=== PATIENT | female | born 2000 | race Two or more races ===

== ENCOUNTER 2020-12-07 05:16 | Inpatient (IN) | payer MEDICAID ==
[~2020-12-07] VITALS: Ht 167.6 cm; Wt 118.6 kg
[2020-12-07 00:20] VITALS: BP 117/73
[2020-12-07] MEDS ORDERED: PREN1TAB62 PO (05:27)
[2020-12-07] MEDS ORDERED: LACTATED RINGERS 1,000 ML IV SCH (05:30)
[2020-12-07] MEDS ORDERED: SODIUM CITRATE/CITRIC ACID 30 ML UDC PO ONE (05:30)
[2020-12-07] MEDS ORDERED: LACTATED RINGERS 1,000 ML IVBOLUS ONE (05:30)
[2020-12-07] MEDS ORDERED: METOCLOPRAMIDE 5 MG/ML, 2ML IV ONE (05:30)
[2020-12-07 05:34] VITALS: BP 125/75
[2020-12-07] MEDS ORDERED: NEWBORN KIT ONE ×2 (05:34→05:57)
[2020-12-07 05:44] LABS: BASOPHILS % (AUTO) 1 % (0-1); EOSINOPHILS % (AUTO) 1 % (1-7); LYMPHOCYTES % (AUTO) 25 % (22-44); MEAN CORPUSCULAR HEMOGLOBIN 32.1 pg (27.0-34.8); MEAN CORPUSCULAR HGB CONC 34.6 g/dL (32.4-35.8); MEAN PLATELET VOLUME 10.5 fL (7.4-10.4); MONOCYTES % (AUTO) 9 % (2-9); NEUTROPHILS % (AUTO) 65 % (42-75); PLATELET COUNT 139 x10^3/uL (130-400); RED BLOOD COUNT 4.51 x10^6/uL (3.82-5.3); RED CELL DISTRIBUTION WIDTH 14.2 % (9.6-15.2)
[2020-12-07] MEDS ORDERED: OXYTOCIN 30U/ 0.9% NaCL 500ML 500 ML ONE (05:57)
[2020-12-07] MEDS ORDERED: SODIUM CITRATE/CITRIC ACID 15 ML UDC ONE (05:57)
[2020-12-07] MEDS ORDERED: CEFAZOLIN 1,000 MG ONE (07:12)
[2020-12-07] MEDS ORDERED: EPHEDRINE 50 MG/ML, 1ML ONE (07:12)
[2020-12-07] MEDS ORDERED: DEXAMETHASONE 4 MG/ML, 1ML ONE (07:12)
[2020-12-07] MEDS ORDERED: KETOROLAC 30 MG/1 ML ONE (07:12)
[2020-12-07] MEDS ORDERED: ONDANSETRON 2MG/ML, 2ML ONE (07:12)
[2020-12-07] MEDS ORDERED: PHENYLEPHRINE 10 MG/ML ONE (07:12)
[2020-12-07] MEDS ORDERED: OXYTOCIN 10 UNITS/ML, 1ML ONE (07:12)
[2020-12-07] MEDS ORDERED: FENTANYL PF 100 MCG/2ML ONE (07:13)
[2020-12-07] MEDS ORDERED: ALBUTEROL SULFATE 2.5 MG/3 ML NPPB PRN (07:30)
[2020-12-07] MEDS ORDERED: ONDANSETRON 2MG/ML, 2ML IV PRN (07:30)
[2020-12-07] MEDS ORDERED: MIDAZOLAM 1 MG/ML, 2ML IV PRN (07:30)
[2020-12-07] MEDS ORDERED: ACETAMINOPHEN 325 MG TABLET PO PRN ×2 (07:30)
[2020-12-07] MEDS ORDERED: EPHEDRINE 50 MG/ML, 1ML IVPush PRN (07:30)
[2020-12-07] MEDS ORDERED: MISOPROSTOL 200 MCG TABLET PR PRN (07:30)
[2020-12-07] MEDS ORDERED: CALCIUM CARBONATE 500 MG TAB.CHEW PO PRN (07:30)
[2020-12-07] MEDS ORDERED: PROMETHAZINE 25 MG/ML, 1ML IV PRN (07:30)
[2020-12-07] MEDS ORDERED: FENTANYL PF 100 MCG/2ML IV PRN (07:30)
[2020-12-07] MEDS ORDERED: MEPERIDINE/PF 25MG/0.5ML IVPush PRN (07:30)
[2020-12-07] MEDS ORDERED: MEASLES,MUMPS&RUBELLA VACC/PF 0.5 ML SQ-VACC PRN (07:30)
[2020-12-07] MEDS ORDERED: METOPROLOL 1 MG/ML, 5ML IV PRN (07:30)
[2020-12-07] MEDS ORDERED: OXYcodone 5 MG/5 ML ORAL.SOL UDC PO PRN (07:30)
[2020-12-07] MEDS ORDERED: ONDANSETRON 2MG/ML, 2ML IVPush PRN (07:30)
[2020-12-07] MEDS ORDERED: hydrALAzine 20 MG/ML, 1ML IV PRN (07:30)
[2020-12-07] MEDS: LACTATED RINGERS 1,000 ML IV SCH ×5 (07:30→23:30)
[2020-12-07] MEDS ORDERED: RHOGAM FROM BLOOD BANK 1 NOTE EA IM/IV ONE (07:30)
[2020-12-07] MEDS ORDERED: HYDROmorphone 2 MG/ML, 1ML IVPush PRN (07:30)
[2020-12-07] MEDS ORDERED: OXYcodone/APAP 5/325MG TABLET PO PRN ×2 (07:30)
[2020-12-07] MEDS ORDERED: HYDROcodone/APAP 7.5-325MG/15ML UDC PO PRN (07:30)
[2020-12-07] MEDS: KETOROLAC 30 MG/1 ML IV SCH ×3 (07:30→21:33)
[2020-12-07] MEDS ORDERED: LABETALOL 5MG/ML, 20ML IV PRN (07:30)
[2020-12-07] MEDS ORDERED: DIPH,PERTUSS(ACELL),TET VAC/PF NC IM-VACC PRN (07:30)
[2020-12-07] MEDS ORDERED: HYDROmorphone 2 MG/ML, 1ML ONE (07:43)
[2020-12-07] MEDS: PRENATAL VIT/IRON/FA 1 EACH TABLET PO SCH (09:00)
[2020-12-07] MEDS: OXYTOCIN 30U/ 0.9% NaCL 500ML 500 ML IV SCH ×2 (09:15→17:30)
[2020-12-07 10:30] VITALS: BP 112/67
[2020-12-07] MEDS: SIMETHICONE 80 MG CHEW TAB PO PRN ×2 (11:40→21:33)
[2020-12-07 17:11] VITALS: BP 119/76
[2020-12-07 18:11] LABS: BASOPHILS % (AUTO) 0 % (0-1); EOSINOPHILS % (AUTO) 0 % (1-7); LYMPHOCYTES % (AUTO) 12 % (22-44); MEAN CORPUSCULAR HEMOGLOBIN 31.9 pg (27.0-34.8); MEAN CORPUSCULAR HGB CONC 34.7 g/dL (32.4-35.8); MEAN PLATELET VOLUME 11.3 fL (7.4-10.4); MONOCYTES % (AUTO) 6 % (2-9); NEUTROPHILS % (AUTO) 82 % (42-75); PLATELET COUNT 134 x10^3/uL (130-400); RED BLOOD COUNT 3.82 x10^6/uL (3.82-5.3)
[2020-12-07 19:30] VITALS: BP 119/74
[2020-12-07 23:30] VITALS: BP 118/75
[2020-12-08] MEDS: OXYTOCIN 30U/ 0.9% NaCL 500ML 500 ML IV SCH (03:30)
[2020-12-08] MEDS: LACTATED RINGERS 1,000 ML IV SCH ×2 (03:30→07:30)
[2020-12-08] MEDS: KETOROLAC 30 MG/1 ML IV SCH ×2 (03:40→08:35)
[2020-12-08 03:57] VITALS: BP 109/74
[2020-12-08 07:45] VITALS: BP 122/76
[2020-12-08] MEDS: SIMETHICONE 80 MG CHEW TAB PO PRN (08:35)
[2020-12-08] MEDS: DOCUSATE 100 MG CAPSULE PO PRN ×2 (08:35→20:37)
[2020-12-08] MEDS: PRENATAL VIT/IRON/FA 1 EACH TABLET PO SCH (08:35)
[2020-12-08 20:16] VITALS: BP 121/77
[2020-12-08] MEDS: IBUPROFEN 600 MG TABLET PO PRN (23:05)
[2020-12-09 07:56] VITALS: BP 124/81
[2020-12-09] MEDS ORDERED: IBUP-1222 PO (08:33)
[2020-12-09] MEDS: IBUPROFEN 600 MG TABLET PO PRN (09:37)
[2020-12-09] MEDS: PRENATAL VIT/IRON/FA 1 EACH TABLET PO SCH (09:37)
[2020-12-09] MEDS: DOCUSATE 100 MG CAPSULE PO PRN (09:37)
[2020-12-09] MEDS: SIMETHICONE 80 MG CHEW TAB PO PRN (09:37)
== END 2020-12-09 14:55 | disposition home or self-care (01) | DRG 788 ==
LOC: LDIP 05:16 → 2NW 10:22
PROVIDERS: ADMIT Obstetrics & Gynecology; ATTEND Obstetrics & Gynecology
PROC: 10D00Z1 Extraction of Products of Conception, Low, Open Approach (ICD-10-PCS; principal; 2020-12-07)
PROC: 3E0234Z Introduction of Serum, Toxoid and Vaccine into Muscle, Percutaneous Approach (ICD-10-PCS; 2020-12-07)
DX: O30.043 Twin pregnancy, dichorionic/diamniotic, third trimester (principal); O32.1XX0 Maternal care for breech presentation, not applicable or unspecified; O36.5932 Maternal care for other known or suspected poor fetal growth, third trimester, fetus 2; Z37.2 Twins, both liveborn; Z3A.36 36 weeks gestation of pregnancy; Z23 Encounter for immunization
CPT/HCPCS: 36415; 85025; 86592; 86850; 86900; 88305; G0378; J0690; J1100; J1170; J1885; J2405; J3010; U0005; J2370; J2590; J2765; J7120; U0003

== ENCOUNTER 2020-12-11 15:43 | Emergency (ER) | payer MEDICAID ==
[~2020-12-11] VITALS: Ht 167.6 cm; Wt 110.0 kg
[~2020-12-11 15:43] MED LIST: IBUP-1222 PO; PREN1TAB62 PO
[2020-12-11 16:36] LABS: BASOPHILS % (AUTO) 0 % (0-1); EOSINOPHILS % (AUTO) 2 % (1-7); LYMPHOCYTES % (AUTO) 14 % (22-44); MEAN CORPUSCULAR HGB CONC 34.7 g/dL (32.4-35.8); MEAN PLATELET VOLUME 10.3 fL (7.4-10.4); MONOCYTES % (AUTO) 5 % (2-9); NEUTROPHILS % (AUTO) 79 % (42-75); PLATELET COUNT 178 x10^3/uL (130-400)
[2020-12-11 16:48] LABS: ALBUMIN 2.5 g/dL (3.4-5.0); ANION GAP 8 mmol/L (5-15); CALCIUM 8.2 mg/dL (8.5-10.1); CHLORIDE 111 mmol/L (98-107)
[2020-12-11 16:50] LABS: CREATININE 0.48 mg/dL (0.55-1.02)
--- NOTE | 2020-12-11 19:38 | NUR ---
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
[2020-12-11 20:00] VITALS: BP 138/70
[2020-12-11] MEDS ORDERED: ACETAMINOPHEN 500 MG TABLET ONE (20:27)
[2020-12-11] MEDS ORDERED: ACETAMINOPHEN 500 MG TABLET PO ONE (20:30)
[2020-12-11 21:33] LABS: MICROSCOPIC INDICATED
--- NOTE | 2020-12-11 21:42 | NUR ---
Back from ultrasound No changes in exam Patient updated on estimated poc (awaiting testing results) Report to hali powell
== END 2020-12-11 23:09 | disposition home or self-care (01) ==
LOC: ED 20:48
DX: R10.33 Periumbilical pain (principal); R10.31 Right lower quadrant pain; R10.32 Left lower quadrant pain; G89.18 Other acute postprocedural pain
CPT/HCPCS: 36415; 76830; 80048; 81001; 82040; 85025; 99284